=== PATIENT | male | born 1970 | race Caucasian/White ===

== ENCOUNTER 2016-09-08 17:49 | Emergency (ER) | payer OTHER ==
[2016-09-08 20:20] LABS: HEMOGLOBIN 13.9 gm/dl (14.0-17.5); RED BLOOD COUNT 4.71 M/UL (4.20-5.50); WHITE BLOOD COUNT 10.5 K/UL (4.5-11.0)
[2016-09-08 20:37] LABS: BUN/CREATININE RATIO 15 (0-10)
== END 2016-09-09 00:15 | disposition home or self-care (01) ==
LOC: ER1 17:49
PROVIDERS: Emergency Medicine
DX: R10.11 Right upper quadrant pain (principal); R10.31 Right lower quadrant pain; R11.0 Nausea
CPT/HCPCS: 36415; 80053; 81001; 83690; 85025; 87086; 96374; 96375; 99284; J1885; J2405; J7030; J7050; Q9962

== ENCOUNTER 2016-09-10 11:35 | Emergency (ER) | payer OTHER ==
[2016-09-10 12:34] LABS: HEMOGLOBIN 15.2 gm/dl (14.0-17.5); WHITE BLOOD COUNT 10.1 K/UL (4.5-11.0)
[2016-09-10 12:41] LABS: RED BLOOD COUNT 5.19 M/UL (4.20-5.50)
[2016-09-10 12:52] LABS: BUN/CREATININE RATIO 16 (0-10)
== END 2016-09-10 13:25 | disposition home or self-care (01) ==
LOC: ER1 11:35
PROVIDERS: Family Medicine
DX: R10.11 Right upper quadrant pain (principal); F17.210 Nicotine dependence, cigarettes, uncomplicated; Z53.21 Procedure and treatment not carried out due to patient leaving prior to being seen by health care provider
CPT/HCPCS: 36415; 80053; 83690; 85025; 99284

== ENCOUNTER 2021-07-03 18:42 | Emergency (ER) | payer SELFPAY ==
[~2021-07-03 18:42] MED LIST: BACTROBAN OINT22 GM EXT; IBUPROFEN600 MG PO; KEFLEX CAP 500500 MG PO
[2021-07-03] MEDS ORDERED: MEDROL DOSEPAK 24 MG PO (20:05)
[2021-07-03] MEDS ORDERED: CYCLOBENZAPRINE10 MG PO (20:05)
== END 2021-07-03 20:47 | disposition home or self-care (01) ==
LOC: ER1 18:42
DX: M54.41 Lumbago with sciatica, right side (principal); F17.200 Nicotine dependence, unspecified, uncomplicated; Z90.49 Acquired absence of other specified parts of digestive tract
CPT/HCPCS: 96372; 96374; 99283; J1100; J1885